=== PATIENT | female | born 1995 | race African-American/Black ===

== ENCOUNTER 2024-11-29 09:44 | Emergency (ER) | payer OTHER ==
[~2024-11-29] VITALS: Ht 175.3 cm; Wt 94.0 kg
[2024-11-29 09:58] VITALS: O2SAT 100
[2024-11-29 10:48] LABS: BASOPHILS % 0.5 % (0.0-2.0); EOSINOPHILS % 3.9 % (0.0-5.0); HEMATOCRIT. 37.1 % (36.0-48.0); HEMOGLOBIN. 12.3 g/dL (12.0-16.0); LYMPHOCYTES % 42.3 % (20.0-50.0); MEAN CORPUSCULAR HEMOGLOBIN 31.5 pg (28.0-32.0); MEAN CORPUSCULAR HGB CONC 33.3 g/dL (31.0-37.0); MEAN CORPUSCULAR VOLUME 94.6 fL (81.0-99.0); MEAN PLATELET VOLUME 7.3 fl (7.4-10.4); MONOCYTES % 8.7 % (2.0-8.0); NEUTROPHILS % 44.6 % (40.0-76.0); PLATELET 280 x1000/uL (130-400); RED BLOOD CELL COUNT 3.92 mill/uL (4.2-5.4); RED CELL DISTRIBUTION WIDTH 12.7 % (11.6-14.6); WHITE BLOOD COUNT 5.1 x1000/uL (4.5-11.0)
[2024-11-29 10:56] LABS: CHLORIDE 108 mEq/L (98-107); SODIUM 141 mEq/L (136-145)
[2024-11-29 10:58] LABS: CALCIUM 9.2 mg/dL (8.7-10.4); CARBON DIOXIDE 25 mEq/L (21-32)
[2024-11-29 11:03] LABS: CREATININE 0.8 mg/dL (0.6-1.0); GLUCOSE 88 mg/dL (70-105); UREA NITROGEN BLOOD 7 mg/dL (9-23)
[2024-11-29 11:09] LABS: PROTHROMBIN TIME 10.3 sec (9.6-11.0)
[2024-11-29 11:25] LABS: HCG SCREEN NEGATIVE
[2024-11-29 11:52] LABS: ALANINE AMINOTRANSFERASE 17 IU/L (10-49); ALBUMIN 4.1 g/dL (3.2-4.8); ASPARTATE AMINOTRANSFERASE 19 IU/L (<34)
[2024-11-29 11:53] LABS: BILIRUBIN DIRECT 0.2 mg/dL (<=3.0); BILIRUBIN TOTAL 0.6 mg/dL (0.1-1.0); PROTEIN TOTAL 7.3 g/dL (6.0-8.3)
[2024-11-29] MEDS ORDERED: IBUP-2030 MT (12:17)
[2024-11-29] MEDS: DEXAMETHASONE 4MG TABLET PO ONE (13:17)
[2024-11-29] MEDS: HEPARIN 100 UNITS/1 ML VIAL IVF ONE (14:42)
[2024-11-29 14:45] VITALS: BP 126/79; PULSE 55; RESP 18; TEMP 37.1; O2SAT 100
== END 2024-11-29 14:48 | disposition home or self-care (01) ==
LOC: ER 09:44
DX: R59.1 Generalized enlarged lymph nodes (principal); R42 Dizziness and giddiness; Z90.49 Acquired absence of other specified parts of digestive tract; Z98.890 Other specified postprocedural states; Z85.71 Personal history of Hodgkin lymphoma
CPT/HCPCS: 99284; 71045; 80076; 80048; 81025; 84703; 83690; 85025; 85610; 36415; J8540; J1642

== ENCOUNTER 2025-01-16 09:35 | Emergency (ER) | payer MEDICAID, OTHER ==
[~2025-01-16] VITALS: Ht 175.3 cm; Wt 90.7 kg
[~2025-01-16 09:35] MED LIST: IBUP-2030 MT
[2025-01-16 09:47] VITALS: BP 103/63; TEMP 36.7; O2SAT 100
[2025-01-16 09:49] VITALS: PULSE 71; RESP 18; O2SAT 98
[2025-01-16 10:50] LABS: BASOPHILS % 0.5 % (0.0-2.0); EOSINOPHILS % 2.9 % (0.0-5.0); HEMATOCRIT. 37.4 % (36.0-48.0); HEMOGLOBIN. 12.5 g/dL (12.0-16.0); LYMPHOCYTES % 43.3 % (20.0-50.0); MEAN CORPUSCULAR HEMOGLOBIN 31.1 pg (28.0-32.0); MEAN CORPUSCULAR HGB CONC 33.3 g/dL (31.0-37.0); MEAN CORPUSCULAR VOLUME 93.3 fL (81.0-99.0); MEAN PLATELET VOLUME 7.4 fl (7.4-10.4); MONOCYTES % 10.6 % (2.0-8.0); NEUTROPHILS % 42.7 % (40.0-76.0); PLATELET 256 x1000/uL (130-400); RED BLOOD CELL COUNT 4.01 mill/uL (4.2-5.4); RED CELL DISTRIBUTION WIDTH 12.5 % (11.6-14.6); WHITE BLOOD COUNT 4.9 x1000/uL (4.5-11.0)
[2025-01-16 10:55] LABS: CLARITY URINE CLEAR (CLEAR); COLOR URINE DARK YELLOW (YELLOW); GLUCOSE URINE NEGATIVE (NEGATIVE); KETONES URINE TRACE (NEGATIVE); LEUKOCYTE ESTERASE URINE NEGATIVE (NEGATIVE); NITRITE URINE NEGATIVE (NEGATIVE); OCCULT BLOOD URINE NEGATIVE (NEGATIVE); PH URINE 6.5 (4.5-8.0); PROTEIN URINE TRACE (NEGATIVE)
[2025-01-16 11:02] LABS: CHLORIDE 108 mEq/L (98-107); POTASSIUM 3.9 mEq/L (3.5-5.1); SODIUM 141 mEq/L (136-145)
[2025-01-16 11:03] LABS: CALCIUM 8.8 mg/dL (8.7-10.4); CARBON DIOXIDE 27 mEq/L (21-32)
[2025-01-16 11:04] LABS: PROTHROMBIN TIME 10.8 sec (9.6-11.0)
[2025-01-16 11:08] LABS: CREATININE 0.8 mg/dL (0.6-1.0); GLUCOSE 90 mg/dL (70-105); UREA NITROGEN BLOOD 8 mg/dL (9-23)
[2025-01-16 11:12] LABS: SQUAMOUS EPITHELIAL CELL URINE FEW /lpf (RARE/1+)
[2025-01-16 11:18] LABS: WBC URINE 0-2 /hpf (0-2)
[2025-01-16 11:19] LABS: RBC URINE 0-2 /hpf (0-2)
[2025-01-16 11:23] LABS: MUCUS URINE TRACE /lpf (< = 2+)
[2025-01-16] MEDS: KETOROLAC 30MG/ML VIAL IM ONE (11:27)
[2025-01-16] MEDS: ONDANSETRON 4MG ODT PO ONE (11:27)
[2025-01-16 11:28] LABS: BACTERIA URINE TRACE
[2025-01-16 11:32] LABS: HCG SCREEN NEGATIVE
[2025-01-16 11:40] LABS: ALANINE AMINOTRANSFERASE 17 IU/L (10-49); ALBUMIN 4.2 g/dL (3.2-4.8); ASPARTATE AMINOTRANSFERASE 20 IU/L (<34); BILIRUBIN DIRECT 0.2 mg/dL (<=3.0); BILIRUBIN TOTAL 0.7 mg/dL (0.1-1.0); PROTEIN TOTAL 7.2 g/dL (6.0-8.3)
[2025-01-16] MEDS ORDERED: KETO10TA2 MT (14:23)
[2025-01-16] MEDS ORDERED: NAPR-681 MT (14:23)
== END 2025-01-16 14:45 | disposition home or self-care (01) ==
LOC: ER 09:35
DX: D25.9 Leiomyoma of uterus, unspecified (principal); K57.90 Diverticulosis of intestine, part unspecified, without perforation or abscess without bleeding; Z98.890 Other specified postprocedural states; Z90.49 Acquired absence of other specified parts of digestive tract
CPT/HCPCS: 99285; 74176; 76830; 76856; 80076; 80048; 81003; 81025; 84703; 83690; 85025; 85610; 36415; 96372; J1885; Q0162

== ENCOUNTER 2025-05-12 09:36 | Emergency (ER) | payer MEDICAID ==
[~2025-05-12] VITALS: Ht 170.2 cm; Wt 96.1 kg
[~2025-05-12 09:36] MED LIST changes: +KETO10TA2 MT; +NAPR-681 MT
[2025-05-12 09:42] VITALS: O2SAT 100
[2025-05-12 09:49] VITALS: BP 103/63; PULSE 100; RESP 18; TEMP 36.6; O2SAT 60
[2025-05-12 13:29] LABS: BASOPHILS % 0.8 % (0.0-2.0); EOSINOPHILS % 3.0 % (0.0-5.0); HEMATOCRIT. 37.8 % (36.0-48.0); HEMOGLOBIN. 12.8 g/dL (12.0-16.0); LYMPHOCYTES % 43.0 % (20.0-50.0); MONOCYTES % 9.8 % (2.0-8.0); NEUTROPHILS % 43.4 % (40.0-76.0); RED BLOOD CELL COUNT 4.05 mill/uL (4.2-5.4); RED CELL DISTRIBUTION WIDTH 13.2 % (11.6-14.6)
[2025-05-12 13:47] LABS: CREATININE 0.7 mg/dL (0.6-1.0); UREA NITROGEN BLOOD 7 mg/dL (9-23)
[2025-05-12 13:48] LABS: TROPONIN I HIGH SENSITIVITY < 4 ng/L (3.0-34)
[2025-05-12 14:16] LABS: PLATELET 251 x1000/uL (130-400)
== END 2025-05-12 13:02 | disposition left against medical advice (07) ==
LOC: ER 09:36
DX: R07.89 Other chest pain (principal); R42 Dizziness and giddiness; I26.99 Other pulmonary embolism without acute cor pulmonale; I46.9 Cardiac arrest, cause unspecified; Z79.1 Long term (current) use of non-steroidal anti-inflammatories (NSAID); Z85.72 Personal history of non-Hodgkin lymphomas; Z90.49 Acquired absence of other specified parts of digestive tract; Z92.3 Personal history of irradiation
CPT/HCPCS: 36415; 71045; 80048; 83605; 84484; 85025; 93005; 99285

== ENCOUNTER 2025-07-05 15:15 | Emergency (ER) | payer MEDICAID ==
[~2025-07-05] VITALS: Ht 167.6 cm; Wt 97.0 kg
[2025-07-05 15:57] VITALS: O2SAT 99
[2025-07-05] MEDS: TETANUS, DIPHTHERIA, PERTUSSIS VAC/PF 0.5ML (>10YR OLD) IM ONE (16:44)
[2025-07-05] MEDS: ACETAMINOPHEN 500MG TABLET PO ONE (16:45)
[2025-07-05] MEDS: LIDOCAINE HCL 1% 20ML VIAL INFIL ONE (16:45)
[2025-07-05] MEDS ORDERED: IBUP-2028 MT (18:20)
[2025-07-05 18:40] VITALS: BP 120/70; PULSE 88; RESP 17; TEMP 36.5; O2SAT 99
== END 2025-07-05 18:41 | disposition home or self-care (01) ==
LOC: ER 15:15
DX: S61.412A Laceration without foreign body of left hand, initial encounter (principal); Z79.1 Long term (current) use of non-steroidal anti-inflammatories (NSAID); Z98.890 Other specified postprocedural states; W18.30XA Fall on same level, unspecified, initial encounter; Y93.89 Activity, other specified; Y92.89 Other specified places as the place of occurrence of the external cause; Y99.8 Other external cause status
CPT/HCPCS: 73120; 73560; 90715; 12002; 90471; 99284; J2003; Z7610; 12001

== ENCOUNTER 2025-07-07 12:59 | Emergency (ER) | payer MEDICAID ==
[~2025-07-07] VITALS: Ht 167.6 cm; Wt 95.0 kg
[~2025-07-07 12:59] MED LIST changes: +IBUP-2028 MT
[2025-07-07 13:13] VITALS: TEMP 36.7; O2SAT 100
[2025-07-07 13:27] VITALS: O2SAT 99
[2025-07-07] MEDS ORDERED: ACET-2708 MT (15:02)
[2025-07-07] MEDS ORDERED: DICL387C TP (15:02)
[2025-07-07 15:35] VITALS: BP 133/90; PULSE 82; RESP 16
[2025-07-07] MEDS: KETOROLAC 30MG/ML VIAL IM ONE (15:35)
== END 2025-07-07 16:16 | disposition home or self-care (01) ==
LOC: ER 12:59
DX: M25.562 Pain in left knee (principal); R60.9 Edema, unspecified; Z85.71 Personal history of Hodgkin lymphoma; Z79.1 Long term (current) use of non-steroidal anti-inflammatories (NSAID); Z79.899 Other long term (current) drug therapy; Z98.890 Other specified postprocedural states; W18.30XA Fall on same level, unspecified, initial encounter; Y93.89 Activity, other specified; Y92.89 Other specified places as the place of occurrence of the external cause; Y99.8 Other external cause status
CPT/HCPCS: 96372; 99283; J1885; Z7610 ×2; A6449

== ENCOUNTER 2025-09-01 20:48 | Emergency (ER) | payer MEDICAID ==
[~2025-09-01] VITALS: Ht 175.3 cm; Wt 95.0 kg
[~2025-09-01 20:48] MED LIST changes: +ACET-2708 MT; +DICL387C TP
[2025-09-01 20:58] VITALS: O2SAT 99
[2025-09-01 21:48] VITALS: BP 110/77; PULSE 67; RESP 16; TEMP 36.7; O2SAT 100
[2025-09-01] MEDS: KETOROLAC 30MG/ML VIAL IM ONE (21:48)
[2025-09-01] MEDS ORDERED: IBUP-1455 MT (22:00)
[2025-09-01] MEDS ORDERED: AMOX1TAB16 MT (22:00)
== END 2025-09-01 22:15 | disposition home or self-care (01) ==
LOC: ER 20:48
DX: H66.92 Otitis media, unspecified, left ear (principal); Z79.1 Long term (current) use of non-steroidal anti-inflammatories (NSAID)
CPT/HCPCS: 99283; 81025; 96372; J1885